=== PATIENT | male | born 1940 | race Caucasian/White ===

== ENCOUNTER → 2020-01-01 | Outpatient (CLI) | payer MEDICARE ==
[~2020-01-01] MED LIST: ACET-683 PO; AMLO1TAB24; APAP325T4 PO; ASPI81TA86 PO; BACI1CAP4 PO; BD P0.9I2 IV; CLOT10TR; ECOT81TA5 PO; HEPA100I14 IV; MELA3TAB49 PO; OXYC1TAB23; TRAZ-252; TRIA37.5 PO
== END ==
LOC: M ONCR 09:13
PROVIDERS: ATTEND General Practice
DX: C20 Malignant neoplasm of rectum (principal)

== ENCOUNTER → 2020-01-18 | Outpatient (RCR) | payer MEDICARE | LOC: M ONCR 01-06 13:59 | PROVIDERS: ATTEND General Practice | DX: C20 Malignant neoplasm of rectum (principal) ==

== ENCOUNTER → 2020-01-19 | Outpatient (CLI) | payer MEDICARE ==
[~2020-01-19] MED LIST changes: +LIDOCAINE 1% MDV 20ML VIAL As Ordered ONE
[2020-01-19 10:05] VITALS: BP 109/62
--- NOTE | 2020-02-16 13:25 | REP ---
PICC LINE INSERTION WITH BRITTANI The procedure was performed under the direct supervision of Dr. Carranza. The risks and benefits of the procedure were explained to the patient and informed consent was obtained. The right basilic vein was localized using ultrasound guidance. The skin was prepped and draped in a sterile fashion. A 1% Lidocaine was used as a local anesthetic. Using ultrasound guidance, the basilic vein was cannulated and a 0.018 guidewire was inserted and advanced to the SVC using fluoroscopic guidance. The needle was removed and a 4.5 [place] dilator and Peel-Away sheath was inserted over the guidewire. A 4.5 [place] single-lumen catheter was cut to a length of 38 cm. The dilator was removed and the catheter was inserted over the guidewire with the tip ending in the SVC. The Peel-Away sheath was removed, and the catheter was flushed with heparinized saline as per hospital protocol. The catheter was affixed to the skin and a sterile dressing was applied. The patient tolerated the procedure well and there were no immediate complications. After the appropriate amount of monitored convalescence, the patient was discharged from the department. 0.1 minutes of fluoroscopy time was utilized for this procedure. GEORGE
== END ==
LOC: M IRPRO 08:59
PROVIDERS: ATTEND Internal Medicine Hematology & Oncology
DX: C20 Malignant neoplasm of rectum (principal)
CPT/HCPCS: 36571; 76937; C1751; J1642; J1644

== ENCOUNTER → 2020-02-08 | Outpatient (CLI) | payer MEDICARE ==
[~2020-02-08] MED LIST changes: +MIDAZOLAM INJ 2MG/2ML VIAL (J2250 PER 1MG) As Ordered ONE; +ceFAZolin 1GM VIAL (J0690 PER 500MG) As Ordered ONE; +diphenhydrAMINE 50MG/ML VIAL (J1200) As Ordered ONE; +fentaNYL 100 MCG/2 ML INJECTION (J3010) As Ordered ONE
--- NOTE | 2020-02-08 15:21 | IRHP ---
[facility] IR Pre-Procedure H & P General Date of Service: Feb 08, 2020 Procedure: Same Day Surgery Interval History and Physical I have seen the patient and reviewed last H & P performed within 30 days. There is no significant interval change. History of Present Illness Chief Complaint The patient is a 79-year-old male admitted with a reason for visit of Rectal Ca. PRE-PROCEDURE DIAGNOSIS: rectal ca HEART: normal rate. LUNGS: normal breathing at rest. ASA Classification ASA Classification: III-Severe systemic dis. Mallampati Score: II NPO: Yes Problems with prior sedation: No Obstructive Sleep Apnea: No Plan moderate sedation Allergies Coded Allergies: No Known Allergies (Unverified , 01/15/20) Home Medications Scheduled 0.9 % Sodium Chloride (Normal Saline Flush), 10 ML IV DAILY, (Reported) 0.9 % Sodium Chloride (Normal Saline Flush), 10 ML IV DAILY, (Reported) 0.9 % Sodium Chloride (Normal Saline Flush), 10 ML IV DAILY Aspirin (Aspir 81), 1 TAB PO DAILY, (Reported) Bacillus Coagulans/Inulin (Probiotic Formula Capsule), 1 CAP PO DAILY, (Repor debi) Heparin Sodium,Porcine/Pf (Heparin 500 Unit/5 ml (100/ml)), 5 ML IV DAILY, (Reported) Heparin Sodium,Porcine/Pf (Heparin 500 Unit/5 ml (100/ml)), 5 ML IV DAILY, (Reported) Heparin Sodium,Porcine/Pf (Heparin 500 Unit/5 ml (100/ml)), 5 ML IV DAILY Triamterene/Hydrochlorothiazid (Triamterene-Hctz 37.5-25 mg Tb), 1 TAB PO DAILY, (Reported) Scheduled PRN Acetaminophen (Acetaminophen), 500 MG PO Q6H PRN for PAIN, (Reported) Miscellaneous Medications Melatonin (Melatonin), 3 MG PO, (Reported) Trazodone HCl (Trazodone HCl), (Reported) VS, I&O, 24H, Fishbone Vital Signs/I&O Vital Signs Date Time Temp Pulse Resp B/P (MAP) Pulse Ox O2 Delivery O2 Flow Rate FiO2 02/08/20 15:00 71 18 100 Room Air 02/08/20 14:50 2 02/08/20 12:51 98.7 PATIENCE WHITE MD Feb 08, 2020 15:21
--- NOTE | 2020-02-08 15:25 | POST-OPPD ---
Postoperative Procedure Note Date Of Procedure: Feb 08, 2020 Time Of Procedure: 15:23 IR Ultrasound and fluoroscopy-guided port placement. IR Ultrasound of the neck. IR Moderate sedation. Clinical information: Rectal cancer Physician: Dr. Amezcua. Procedure: The patient was advised of the benefits, risks, and alternatives of the procedure and informed consent was obtained. A time-out was performed with verification of the patient's name, MRN, site of procedure and type of procedure to be performed. The patient was positioned in the supine position on the angiographic table. The site was prepped and draped in the usual sterile fashion. Moderate sedation was performed by the physician including the presence of an independent trained observer who assisted and monitored the patient's level of consciousness and physiologic status. Following the administration of fentanyl and Versed , the physician spent 45 minutes of continuous face to face time with the patient. Ultrasound of the neck reveals a patent and compressible right internal jugular vein. A policy value calculator radiograph reveals no gross abnormality. The neck and anterior chest wall were anesthetized with lidocaine. The right internal jugular vein was accessed using a microintroducer needle under ultrasound guidance, via a lateral approach. An 018 wire was advanced into the superior vena cava, the needle was removed and a microsheath was placed. An Amplatz wire was then passed into the inferior vena cava. An incision at the internal jugular vein access site and anterior chest wall were made using a scalpel. An incision was made at the anterior chest wall. A small pocket was created using a combination of blunt and sharp dissection. A tunneling device was then used to pass the catheter from the pocket to the neck puncture site. An 8- [place] [employer] It In Person Smart power port was then positioned in the pocket. The catheter was then measured and cut. The introducer sheath was exchanged for a peel-away sheath. The catheter was passed through the peel-away sheath into the internal jugular vein and the peel-away sheath was removed. The port tip was positioned at the cavoatrial junction. The port was then accessed with a Acevedo needle. The port flushes and aspirates well. The puncture site in the neck was closed. The chest wall incision was then closed with 2-0 Vicryl and 4-0 Monocryl. Glue and Steri- Strips were applied. A sterile dressing was then applied. The patient tolerated the procedure well and was returned to the PRU in stable condition. Estimated blood loss: <5 ml. Complications: None. Conclusion: 1. Successful placement of an 8-[place] Ang[employer] Smart power port via the right internal jugular vein. The port is ready for immediate use. 2. Patient to follow up in IR clinic in 2 weeks. Thank you for this referral. PATIENCE AMEZCUA MD Feb 08, 2020 15:25
[2020-02-08 16:31] VITALS: BP 96/53
== END ==
LOC: M IRPRO 12:32
PROVIDERS: ATTEND Internal Medicine Hematology & Oncology
DX: C20 Malignant neoplasm of rectum (principal)
CPT/HCPCS: 36571; 99152; 99153; C1769; C1788; C1894; J0690; J1642; J1644; J2250; J3010

== ENCOUNTER → 2020-02-17 | Outpatient (RCR) | payer MEDICARE ==
[~2020-02-17] MED LIST changes: -LIDOCAINE 1% MDV 20ML VIAL As Ordered ONE; -MIDAZOLAM INJ 2MG/2ML VIAL (J2250 PER 1MG) As Ordered ONE; -ceFAZolin 1GM VIAL (J0690 PER 500MG) As Ordered ONE; -diphenhydrAMINE 50MG/ML VIAL (J1200) As Ordered ONE; -fentaNYL 100 MCG/2 ML INJECTION (J3010) As Ordered ONE
== END ==
LOC: M ONCR 01-19 09:12
PROVIDERS: ATTEND General Practice
DX: C20 Malignant neoplasm of rectum (principal)

== ENCOUNTER 2020-03-03 11:26 | Outpatient (RCR) | payer MEDICARE ==
[~2020-03-03 11:26] MED LIST changes: -ECOT81TA5 PO
== END 2020-03-19 ==
LOC: M ONCR 11:26
PROVIDERS: ATTEND General Practice
DX: C20 Malignant neoplasm of rectum (principal)

== ENCOUNTER → 2020-06-17 | Outpatient (CLI) | payer MEDICARE ==
[~2020-06-17] MED LIST changes: +ECOT81TA5 PO; +FERR325T3 PO; +POTA1TAB14 PO
--- NOTE | 2020-06-17 13:34 | REP ---
INDICATION: RECTAL CA. COMPARISON: Comparison chest CT study December 02, 2019 from [facility].. TECHNIQUE: Helical scanning is acquired. 3 mm axial images are generated. Coronal and sagittal MPR and coronal MIP images are generated. FINDINGS: Digital preliminary waste examiner radiograph demonstrates a Czkfpt-N-Eiut catheter. The lungs are free of infiltrate. No pulmonary mass lesion is observed. No pulmonary nodule is appreciated. There is no evidence of pleural or pericardial effusion. The right internal jugular vein improved Drptzs-[id number]-Tlql catheter terminates in the superior vena cava. There is some vascular calcification. Normal adrenal glands are observed. Calcified gallstones are seen in the gallbladder. No mediastinal mass or adenopathy. No bony destructive lesion is seen. IMPRESSION: No active cardiopulmonary disease. No evidence of pulmonary metastatic disease. Daraab-E-Cyvr catheter noted. <Electronically signed by Raffi Steiner > 06/17/20 [id number]
--- NOTE | 2020-06-17 13:43 | REP ---
INDICATION: RECTAL CA status post diverting enterostomy and chemotherapy. COMPARISON: Comparison CT study of the abdomen and pelvis is from December 09, 2019.. TECHNIQUE: Helical scanning is acquired in 4 mm axial images were reformatted. Coronal and sagittal MPR images were generated and reviewed. FINDINGS: The liver and the spleen are normal in size homogeneous in texture. No focal liver mass lesion is seen. Calcified gallstones are noted in the dependent portion the gallbladder. Normal adrenal glands are seen. No retroperitoneal or upper abdominal mass or adenopathy is observed. The kidneys appear morphologically intact except for a small peripheral cyst in the upper pole on the right and another in the lower pole on the right. These are unchanged. No abnormality is noted in the pancreas. The patient's diverting enterostomy is seen in the right lower abdomen. There is a parastomal hernia involving a nonobstructed loop of small intestine. There is pancolonic diverticulosis without CT evidence of diverticulitis. The previously noted large central mass surrounding the rectosigmoid colon is again seen. This appears involved at least the left seminal vesicle. It is much improved from prior study of December 09, 2019. The overall dimensions of the residual mass effect are 4.4 by 3.5, previously 7.5 by 6.3 cm by my measurement. There is mild diffuse bladder wall thickening. Prostate calcifications are again noted. No definite pelvic sidewall or internal iliac adenopathy is seen. No other abdominal wall defect is seen. IMPRESSION: 1. Cholelithiasis. No evidence of hepatic mass. 2. 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 No obstruction.. 3. Pancolonic diverticulosis. 4. Interval improvement but not resolution in the size of the mass involving the rectosigmoid colon and left seminal vesicle. Measurements as above. No adenopathy is appreciated. 5. bilateral renal cortical cysts. <Electronically signed by Raffi Steiner > 06/17/20 [id number]
== END ==
LOC: M RAD 12:40
PROVIDERS: ATTEND Internal Medicine Hematology & Oncology
DX: C19 Malignant neoplasm of rectosigmoid junction (principal); K80.20 Calculus of gallbladder without cholecystitis without obstruction; Z93.4 Other artificial openings of gastrointestinal tract status; N28.1 Cyst of kidney, acquired